=== PATIENT | female | born 1960 | race Caucasian/White ===

== ENCOUNTER → 2017-06-09 | Outpatient (CLI) | payer BC ==
[~2017-06-09] MED LIST: CITALOPRAM HBR10 MG; CITALOPRAM HBR40 MG PO; IBUPROFEN PO; LEVOCETIRIZINE D5 MG; PRILOSEC20 M1; ROBAXIN PO; SINGULAIR; SINGULAIR PO; SUMATRIPTAN SU100 MG PO; SYMBICORT80 INH; ULTRAM PO; VICODIN 5/1 TAB 5/50 PO; XYZAL5 MG PO
--- NOTE | ~2017-06-09 | MY29 ---
[facility] A Service of [facility] & [facility] RADIOLOGY TEXT RESULTS PATIENT: KISHOR AN [facility] 60 UNIT #: [id number] AGE: [address]: Humberto Treadwell MD SEX: F ORDER DR: [id number] [facility] [address] [place], [place] [address] [id number] O MR#: [id number] Acc #: [id number] NAME: KISHOR AN : 1960 SEX: F STUDY DATE/TIME: 06/09/2017 17:02 [facility] ROOM: STUDY DESCRIPTION: MY NADEEN SCREENING W/ CAD BILAT Attending Physician: Humberto Treadwell M.D. Referring Physician: Humberto Treadwell M.D. Ordering Physician: Humberto Treadwell M.D. Primary Care Physician: Francisco Javier Campuzano M.D. MEDICAL IMAGING REPORT This report is preliminary unless electronic signature is present EXAM Mild digital screening mammogram with CAD, 06/09/2017 HISTORY No personal or family history of breast cancer or current complaints. COMPARISON Bilateral digital screening mammogram 10/30/2015, 12/01/2011. FINDINGS CC and MLO views were obtained of each breast utilizing digital technique and reviewed with a FDA-approved CAD device. Scattered fibroglandular densities are present bilaterally. 5 mm circumscribed nodule within the lateral left breast on the CC view is unchanged from 12/01/2011, in keeping with a benign finding, such as an intramammary lymph node. A 6 mm asymmetric density in the mid- to posterior third of the left breast CC view, just medial to the posterior nipple line is seen, located about 8.5 cm deep to the nipple. It is not definitely seen on the 2015 or 2011 examinations, and persists upon repeat CC view. It has no definite MLO correlate. A 6 mm nodule within the upper outer right breast is unchanged from prior, in keeping with benign finding, such as intramammary lymph node. No architectural distortion or suspicious clustered microcalcifications are identified. IMPRESSION 1. BIRADS 0. Additional imaging required. 6 mm focal asymmetry in the STS. [facility] A Service of [facility] & [facility] RADIOLOGY TEXT RESULTS PATIENT: KISHOR AN [facility] 60 UNIT #: [id number] AGE: [address]: Humberto Treadwell MD SEX: F ORDER DR: left breast, slightly medial to the posterior nipple line, 8.5 centers deep to the nipple, is seen. This may represent summation artifact. True ML view of the left breast, along with spot compression in the CC plane, and rolled medial and rolled lateral CC views would be recommend for further evaluation. Diagnostic left breast ultrasound may be performed on the same day for complete evaluation. BIRADS: 0 Incomplete; Need additional imaging evaluation and/or prior mammograms for comparison. Patients over the age of 40 are entered into a reminder system with target due date for the next mammogram. A result letter will also be sent to the patient. Dictated by... Sierra Cabrera M.D. THIS IS AN ELECTRONICALLY VERIFIED REPORT Sierra Cabrera M.D. at 06/15/2017 3:26 PM DAVID/lauryn TD: 06/10/2017 21:50 JOB #: [id number] MEDICAL IMAGING REPORT Page 1 of 1 COPY
== END | disposition home or self-care (01) ==
LOC: CWCC 16:39
DX: Z12.31 Encounter for screening mammogram for malignant neoplasm of breast (principal)
CPT/HCPCS: G0202

== ENCOUNTER → 2017-06-22 | Outpatient (CLI) | payer BC ==
--- NOTE | ~2017-06-22 | US24 ---
[facility] A Service of [facility] & [facility] RADIOLOGY TEXT RESULTS PATIENT: KISHOR AN LOCATION: [facility] : 60 UNIT #: [id number] AGE: [address]: Humberto Treadwell MD SEX: F ORDER DR: [id number] [facility] [address] [place], [place] [address] [id number] O MR#: [id number] Acc #: [id number] NAME: KISHOR AN : 1960 SEX: F STUDY DATE/TIME: 06/22/2017 13:49 UNIT: [facility] ROOM: STUDY DESCRIPTION: US Breast Unilateral Attending Physician: Humberto Treadwell M.D. Referring Physician: Humberto Treadwell M.D. Ordering Physician: Humberto Treadwell M.D. Primary Care Physician: Francisco Javier Campuzano M.D. MEDICAL IMAGING REPORT This report is preliminary unless electronic signature is present EXAM Left breast ultrasound. COMPARISON Left diagnostic mammogram on the same date as well as other mammograms dated June 09, 2017; October 30, 2015; and December 01, 2011. INDICATIONS 56-year-old female with a left breast asymmetry only seen on CC projection. Additional imaging evaluation was recommended. FINDINGS AND IMPRESSION Please see separately dictated report of left diagnostic mammography on the same date for full sonographic findings in the left breast today as well as final impression and recommendations. BIRADS: 1 Negative. Dictated by... Eyal Abraham M.D. THIS IS AN ELECTRONICALLY VERIFIED REPORT Eyal Abraham M.D. at 06/28/2017 4:01 PM CEDRIC/shelby TD: 06/23/2017 06:15 JOB #: [id number] MEDICAL IMAGING REPORT Page 1 of 1 COPY
--- NOTE | ~2017-06-22 | MY24 ---
[facility] A Service of [facility] & [facility] RADIOLOGY TEXT RESULTS PATIENT: KISHOR AN LOCATION: [facility] : 60 UNIT #: [id number] AGE: [address]: Humberto Treadwell MD SEX: F ORDER DR: [id number] [facility] [address] [place], [place] [address] [id number] O MR#: [id number] Acc #: [id number] NAME: KISHOR AN : 1960 SEX: F STUDY DATE/TIME: 06/22/2017 13:15 UNIT: [facility] ROOM: STUDY DESCRIPTION: HELDER ZAPIEN W/ CAD UNI LT Attending Physician: Humberto Treadwell M.D. Referring Physician: Humberto Treadwell M.D. Ordering Physician: Humberto Treadwell M.D. Primary Care Physician: Francisco Javier Campuzano M.D. MEDICAL IMAGING REPORT This report is preliminary unless electronic signature is present EXAM Left digital diagnostic mammogram COMPARISON Screening mammograms dated June 09, 2017, October 30, 2015 as well as other mammograms dated December 01, 2011, December 05, 2007. INDICATION 56-year-old female with a left breast asymmetry only seen on CC view. Additional imaging evaluation was recommended. FINDINGS Spot compression CC as well as full field rolled medial and rolled lateral CC views of the left breast were obtained. Full field ML and spot compression ML views were also obtained. There are scattered fibroglandular densities in the left breast. The finding of initial concern nearly completely effaces and is not well localized on the rolled medial or lateral views. Stable probable intramammary lymph node is noted in the left breast along the posterior nipple line on ML view, stable from other comparison mammograms particularly going back to 2011. When allowing for involution of breast tissues, it appears that this asymmetry which has nearly completely effaced is not significantly changed from comparison mammogram going back as far as 2011. Given there may be a correlate on the rolled medial view which does not move appreciably between the CC and rolled medial view the only possible location for this finding would be in the central left breast and as a precaution sonographic evaluation was performed throughout the central left breast. This was negative. This did show multiple islands of echogenic fibroglandular tissue deep in the left breast. One of these corresponds to the finding of initial concern. IMPRESSION No mammographic or sonographic evidence of malignancy in the left breast. [facility] A Service of [facility] RADIOLOGY TEXT RESULTS PATIENT: KISHOR AN LOCATION: [facility] : 60 UNIT #: [id number] AGE: [address]: Humberto Treadwell MD SEX: F ORDER DR: The finding of initial concern incompletely effaces but now appears stable going back to multiple prior mammograms and corresponds to an island of echogenic fibroglandular tissue on ultrasound, which is benign. Continued annual screening mammography is recommended. Findings and recommendations were discussed with the patient today. Patients over the age of 40 are entered into a reminder system with target due date for the next mammogram. A result letter will also be sent to the patient. BIRADS: 1 Negative Dictated by... Eyal Abraham M.D. THIS IS AN ELECTRONICALLY VERIFIED REPORT Eyal Abraham M.D. at 06/28/2017 3:58 PM Gregory TD: 06/23/2017 06:10 JOB #: [id number] MEDICAL IMAGING REPORT Page 1 of 1 COPY
== END | disposition home or self-care (01) ==
LOC: CMAM 12:27
DX: N64.89 Other specified disorders of breast (principal)
CPT/HCPCS: 76641; G0206